=== PATIENT | female | born 1965 | race Caucasian/White ===

== ENCOUNTER 2017-09-15 20:38 | Emergency (ER) | payer SELFPAY ==
--- NOTE | 2017-09-15 21:44 | RADIOLOGY REPORT (SQ) ---
EXAM DESCRIPTION: HAND RIGHT 3 VIEWS COMPLETED DATE/TIME: 09/15/2017 9:28 pm REASON FOR STUDY: injury COMPARISON: None. EXAM PARAMETERS: NUMBER OF VIEWS: Three views. TECHNIQUE: AP, lateral and oblique radiographic images acquired of the right hand. LIMITATIONS: None. FINDINGS: MINERALIZATION: Normal. BONES: No acute fracture or dislocation. No worrisome bone lesions. JOINTS: No effusions. SOFT TISSUES: There is a bandage around the hand. OTHER: No other significant finding. IMPRESSION: NEGATIVE STUDY OF THE RIGHT HAND. NO RADIOGRAPHIC EVIDENCE OF ACUTE INJURY. TECHNICAL DOCUMENTATION: JOB ID: [id number] [employer]- All Rights Reserved Reading location - IP/workstation name: [email or web address]
[2017-09-15] MEDS ORDERED: LIDOCAINE 1% INJ-PF (10 MG/ML) 30 ML SDV INJ ONE (22:01)
[2017-09-15] MEDS ORDERED: CEPHALEXIN 500 MG CAPSULE PO ONE (22:01)
--- NOTE | 2017-09-15 22:06 | ER Document Report ---
ED Wound - General Chief Complaint: Laceration Stated Complaint: HAND LACERATION Time Seen by Provider: 09/15/17 21:07 Mode of Arrival: Ambulatory Information source: Patient TRAVEL OUTSIDE OF THE [place] IN LAST 30 DAYS: No - HPI Patient complains to provider of: Laceration Notes: Patient is here with complaints of right hand laceration. The patient states she was sitting on a porch and 1 of the legs of the chair was sitting over the edge of the porch causing her to fall backwards and lacerated her hand on the sharp branch of the [employer]. She denies striking her head. No loss of conscious. She denies any neck, back, chest, abdominal pain. She complains of a laceration and pain to the right hand. She denies any numbness, tingling. No fevers. Tetanus is up-to-date. She denies any other rashes. She denies any other injuries. She has mild pain in the area worse with movement, better with rest. No other complaints. - Related Data Allergies/Adverse Reactions: Penicillins Allergy (Verified 09/15/17 20:43) Past Medical History - Social History Smoking Status: Never Smoker Frequency of alcohol use: None Drug Abuse: None Family History: Reviewed & Not Pertinent Patient has suicidal ideation: No Patient has homicidal ideation: No - Past Medical History Cardiac Medical History: Reports: Hx Hypertension Endocrine Medical History: Reports: Hx Diabetes Mellitus Type 2 Renal/ Medical History: Denies: Hx Peritoneal Dialysis Past Surgical History: Reports: Hx Hysterectomy Review of Systems - Review of Systems -: Yes All other systems reviewed and negative Physical Exam - Vital signs Vitals: Temp Pulse Resp BP Pulse Ox 97.8 F 63 16 164/98 H 96 09/15/17 20:50 09/15/17 20:50 09/15/17 20:50 09/15/17 20:50 09/15/17 20:50 - Notes Notes: GENERAL: alert, cooperative, nontoxic, no distress. HEAD: normocephalic, atraumatic EYES: conjunctiva pink without discharge, no external redness or swelling. EARS: no external swelling, no external redness NOSE: atraumatic, no external swelling MOUTH/THROAT: mucous membranes moist and pink NECK: soft, supple, full range of motion, no meningismus. CHEST: no distress, lungs clear and equal throughout. No wheezing, rales, rhonchi. CARDIAC: regular rate and rhythm, no murmur, normal capillary refill, normal pulses. BACK: full range of motion, no CVA tenderness. EXTREMITIES: 5 cm laceration through the thenar aspect of the right hand. Laceration goes through the muscle of this area. No obvious tendon laceration. Normal cap refill and sensation to the entire thumb. Patient has limited flexion of the thumb. Remainder of her muscle skeletal exam is unremarkable. No foreign body. NEURO: alert and oriented 3, no focal deficits, full range of motion of all extremities. PYSCH: appropriate mood, affect. Patient is cooperative. SKIN: pink, warm, dry, no rash. Course - Re-evaluation Re-evalutation: 09/15/17 22:04 Patient is nontoxic appearing with stable vitals. She is here with a laceration of the palm of her right hand. She was sitting on a porch when the chair leg went over the edge of the porch causing her to fall and lacerated the palm of her right hand on sharp branch of the [place]. The patient has a deep laceration through the palm of her hand and thenar area. This does appear to go through the muscles in this area and she has limited flexion of the thumb. She does have normal sensation and cap refill. There is no obvious foreign body or obvious tendon laceration. I called and spoke with Dr. Peña of orthopedics, he recommended copious irrigation, skin closure, splinting and having the patient follow-up with Dr. Bolaños as an outpatient. Patient's tetanus is up-to-date. She will be given Keflex in the emergency department will be discharged home on Keflex and in a thumb spica splint. 09/15/17 23:41 The patient is noted to have elevated blood pressure during today's emergency department visit. The patient was informed of this finding. The patient was instructed that this may be related to pre-hypertension and requires further evaluation with a primary care provider. The patient has no hypertensive symptoms at this time. The patient's emergency department workup and current diagnosis were explained to the patient and or family. Follow-up instructions were provided. Medications if prescribed were discussed. Instructions for when to return to the emergency department including specific worrisome symptoms were discussed with the patient and/or family. - Vital Signs Vital signs: Temp Pulse Resp BP Pulse Ox 97.8 F 63 16 164/98 H 96 09/15/17 20:50 09/15/17 20:50 09/15/17 20:50 09/15/17 20:50 09/15/17 20:50 - Diagnostic Test Radiology reviewed: Image reviewed, Reports reviewed - No acute fracture or foreign body of the right hand Procedures - Immobilization right hand Pre-Proc Neuro Vasc Exam: Normal Immobilizer type: Thumb spica Performed by: PCT Post-Proc Neuro Vasc Exam: Normal Alignment checked and good: Yes - Laceration/Wound Repair right hand Wound length (cm): 5 Wound's Depth, Shape: Into muscle, Irregular, Flap Laceration pre-procedure: Sterile PPE donned, Sterile drapes applied, Shur- Clens applied Anesthetic type: 1% Lidocaine Volume Anesthetic (mLs): 10 Wound explored: Clean, No foreign body removed Irrigated w/ Saline (mLs): 100 Wound Repaired With: Sutures Suture Size/Type: 4:0, Ethilon Number of Sutures: 10 Layer Closure?: No Post-procedure wound care: Sterile dressing applied, Splint applied Post-procedure NV exam normal: Yes Complications: No Discharge - Discharge Clinical Impression: Muscle laceration Laceration of right hand Qualifiers: Encounter type: initial encounter Foreign body presence: without foreign body Qualified Code(s): S61.411A - Laceration without foreign body of right hand, initial encounter Condition: Stable Disposition: HOME, SELF-CARE Instructions: Antibiotic Ointment Protection ([facility]), Laceration Care ([facility]), Prophylactic Antibiotic ([facility]) Additional Instructions: Take medications as prescribed. Keep wound clean and dry. Wear splint until you follow-up with orthopedics. Call tomorrow to make a follow-up appointment with Dr. Bolaños. Follow-up sooner for worsening pain, fever, numbness, tingling or for any further concerns. Your blood pressure was elevated during today's visit. Have this rechecked with your doctor. The medication you were prescribed today may cause drowsiness. Do not drive or operate heavy machinery while taking this medication. Prescriptions: Cephalexin Monohydrate [Keflex 500 mg Capsule] 500 mg PO BID 10 Days #20 capsule Hydrocodone/Acetaminophen [Vera 5-325 mg Tablet] 2 tab PO Q6H PRN #15 tab PRN Reason: Forms: Elevated Blood Pressure Referrals: KHLOE BOLAÑOS DO [ACTIVE STAFF] - Follow up as needed
[2017-09-16 03:12] VITALS: BP 155/85
== END 2017-09-16 00:35 | disposition home or self-care (01) ==
LOC: ER 20:38
PROC: 0HQFXZZ Repair Right Hand Skin, External Approach (ICD-10-PCS; principal; 2017-09-15)
DX: S61.411A Laceration without foreign body of right hand, initial encounter (principal); W07.XXXA Fall from chair, initial encounter; Y92.009 Unspecified place in unspecified non-institutional (private) residence as the place of occurrence of the external cause; Z88.0 Allergy status to penicillin; I10 Essential (primary) hypertension; E11.9 Type 2 diabetes mellitus without complications; Z90.710 Acquired absence of both cervix and uterus
CPT/HCPCS: 99283; 73130; 12002; J3490

== ENCOUNTER 2019-08-11 05:26 | Inpatient (IN) | payer SELFPAY ==
[2019-08-11] MEDS ORDERED: ONDANSETRON HCL INJ/PF 4 MG/2 ML SDV IV ONE (05:38)
--- NOTE | 2019-08-11 05:40 | ER Document Report ---
ED Medical Screen (RME) - General Chief Complaint: Seizure Stated Complaint: POSSIBLE SEIZURE/AMS Time Seen by Provider: 08/11/19 05:33 Notes: 53-year-old female with chief complaint of seizure that happened just prior to arrival, she comes by EMS, told EMS he woke up and found her jerking in the bed and temporarily unresponsive for a few minutes. Patient was sluggish and postictal initially reportedly. Patient vomited after arrival to the emergency department. She did report some nausea but she denies headache, she denies any other locations of pain, she denies any other complaints. She denies head injury, denies alcohol, denies ever having a seizure in the past. Past medical history of hypertension, hypothyroidism, and has been clear from ovarian cancer for 3 years (not currently on chemotherapy or radiation). TRAVEL OUTSIDE OF THE [place] IN LAST 30 DAYS: No - Related Data Allergies/Adverse Reactions: Penicillins Allergy (Verified 09/15/17 20:43) Past Medical History - Past Medical History Cardiac Medical History: Reports: Hx Hypertension Endocrine Medical History: Reports: Hx Diabetes Mellitus Type 2 Renal/ Medical History: Denies: Hx Peritoneal Dialysis Past Surgical History: Reports: Hx Hysterectomy Physical Exam - HEENT Mouth/Lips: Other - Small area of bleeding over the distal right area of the tongue, otherwise unremarkable - Neurological Cognition: Normal Orientation: Disoriented to events. No: Disoriented to person, Disoriented to place, Disoriented to time [place] Coma Scale Eye Opening: Spontaneous [place] Coma Scale Verbal: Oriented [place] Coma Scale Motor: Obeys Commands Jerry Coma Scale Total: 15 Speech: Normal. 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 Work-up pending including CAT scan of the head because of her vomiting and lack of history of previous seizures. I have greeted and performed a rapid initial assessment of this patient. A comprehensive ED assessment and evaluation of the patient, analysis of test results and completion of the medical decision making process will be conducted by additional ED providers.
[2019-08-11 06:20] LABS: ABSOLUTE LYMPHOCYTES (AUTO) 0.5 10^3/uL (0.5-4.7); ABSOLUTE MONOCYTES (AUTO) 0.3 10^3/uL (0.1-1.4); ABSOLUTE NEUT (AUTO) 6.8 10^3/uL (1.7-8.2); BASOPHILS % (AUTO) 0.5 % (0-2); EOSINOPHILS % (AUTO) 0.2 % (0-6); HEMATOCRIT 37.2 % (36.0-47.0); HEMOGLOBIN 12.9 g/dL (12.0-15.5); LYMPHOCYTES % (AUTO) 6.1 % (13-45); MEAN CORPUSCULAR HEMOGLOBIN 30.8 pg (27.0-33.4); MEAN CORPUSCULAR HGB CONC 34.6 g/dL (32.0-36.0); MEAN CORPUSCULAR VOLUME 89 fl (80-97); MONOCYTES % (AUTO) 3.7 % (3-13); PLATELET COUNT 317 10^3/uL (150-450); RED BLOOD COUNT 4.18 10^6/uL (3.72-5.28); RED CELL DISTRIBUTION WIDTH 13.4 % (11.5-14.0); SEGMENTED NEUTROPHILS % (AUTO) 89.5 % (42-78); TOTAL CELLS COUNTED % (AUTO) 100 %; WHITE BLOOD COUNT 7.6 10^3/uL (4.0-10.5)
[2019-08-11 06:35] LABS: ALBUMIN 4.1 g/dL (3.5-5.0); ALKALINE PHOSPHATASE 53 U/L (38-126); ANION GAP 12 (5-19); ASPARTATE AMINO TRANSFERASE 39 U/L (14-36); BILIRUBIN,TOTAL 0.3 mg/dL (0.2-1.3); BLOOD UREA NITROGEN 21 mg/dL (7-20); CALCIUM 9.2 mg/dL (8.4-10.2); CARBON DIOXIDE 21 mmol/L (22-30); CHLORIDE 101 mmol/L (98-107); GLUCOSE 292 mg/dL (75-110); POTASSIUM 4.8 mmol/L (3.6-5.0); TOTAL PROTEIN 6.8 g/dL (6.3-8.2)
[2019-08-11 06:36] LABS: ALCOHOL < 10 mg/dL (NONE DETECTED)
--- NOTE | 2019-08-11 06:57 | RADIOLOGY REPORT (SQ) ---
EXAM DESCRIPTION: XR CHEST 1 VIEW COMPLETED DATE/TME: 08/11/2019 05:37 CLINICAL HISTORY: 53 years Female, confusion, vomiting COMPARISON: None. NUMBER OF VIEWS/TECHNIQUE: 1/AP FINDINGS: Adequate lung volume, clear parenchyma, normal cardiac silhouette, and intact bony thorax. IMPRESSION: No acute cardiopulmonary findings.
--- NOTE | 2019-08-11 07:01 | RADIOLOGY REPORT (SQ) ---
EXAM DESCRIPTION: CT HEAD WITHOUT IV CONTRAST COMPLETED DATE/TME: 08/11/2019 05:37 CLINICAL HISTORY: 53 years Female, confusion, vomiting COMPARISON: None. TECHNIQUE: No contrast. Coronal and sagittal reformat. This exam was performed according to our departmental dose-optimization program, which includes automated exposure control, adjustment of the mA and/or kV according to patient size and/or use of iterative reconstruction technique. FINDINGS: Small to moderate left posterior parietal and left occipital infarct-encephalomalacia. No hemorrhage. No mass, mass effect, or midline shift. Atherosclerosis. 1.8 cm left maxillary retention cyst-mucocele. Brain and extra-axial structures appear otherwise intact. IMPRESSION: No acute findings. Multiple infarcts.
[2019-08-11 07:19] LABS: URINE AMPHETAMINES SCREEN NEGATIVE; URINE BARBITURATES SCREEN NEGATIVE; URINE BENZODIAZEPINES SCREEN NEGATIVE; URINE COCAINE SCREEN NEGATIVE; URINE MARIJUANA (THC) SCREEN NEGATIVE; URINE METHADONE SCREEN NEGATIVE; URINE PHENCYCLIDINE SCREEN NEGATIVE
[2019-08-11 07:42] LABS: APPEARANCE,URINE SLIGHTLY-CLOUDY; BILIRUBIN,URINE NEGATIVE (NEGATIVE); COLOR,URINE YELLOW; GLUCOSE, URINE >=500 mg/dL (NEGATIVE); KETONES,URINE NEGATIVE (NEGATIVE); LEUKOCYTE ESTERASE,URINE NEGATIVE (NEGATIVE); NITRITE,URINE NEGATIVE (NEGATIVE); PROTEIN,URINE 30 mg/dL (NEGATIVE); URINE SPECIFIC GRAVITY 1.022; UROBILINOGEN,URINE NEGATIVE mg/dL (<2.0)
[2019-08-11 07:57] LABS: ADD MANUAL MICROSCOPIC YES; BACTERIA,URINE 3+ /HPF; RBC,URINE RARE /HPF
[2019-08-11] MEDS ORDERED: LEVETIRACETAM 1500 MG/NACL-ISO 1,500 MG/100 ML RTUPB IV ONE (08:51)
--- NOTE | 2019-08-11 10:47 | RADIOLOGY REPORT (SQ) ---
EXAM DESCRIPTION: MRI HEAD WITHOUT COMPLETED DATE/TIME: 08/11/2019 10:33 am REASON FOR STUDY: New onset seizures, multiple old infarcts COMPARISON: CT brain dated 08/11/2019 TECHNIQUE: Multiplanar imaging includes non-contrasted T1, T2, FLAIR, and Diffusion with ADC map seq uences. Images stored on PACS. LIMITATIONS: None. FINDINGS: ANATOMY: No anomalies. Normal vascular flow voids. Pituitary fossa normal. CSF SPACES: Normal in size and contour. No hemorrhage. CEREBRUM: A few high-signal intensity lesions scattered throughout the white matter on FLAIR imaging with distribution suggesting chronic micro-vascular ischemic change. Sulci and gyri normal in size a nd contour. No evidence of hemorrhage, mass or extraaxial fluid collection. POSTERIOR FOSSA: No signal alteration. No hemorrhage. No edema, masses or mass effect. Internal kristan tory canals, cerebello-pontine angles, mastoids normal. DIFFUSION: Negative for acute or sub-acute infarction. ORBITS: No masses. Globes normal. PARANASAL SINUSES: There is a retention cyst or polyp in the left maxillary sinus. OTHER: No other significant finding. IMPRESSION: Microvascular ischemic change. No acute intracranial event. EVIDENCE OF ACUTE STROKE: NO. TECHNICAL DOCUMENTATION: JOB ID: [id number] [employer]- All Rights Reserved Reading location - IP/workstation name: [email or web address]
[2019-08-11] MEDS ORDERED: ONDANSETRON HCL INJ/PF 4 MG/2 ML SDV IV PRN (10:57)
[2019-08-11] MEDS ORDERED: ACETAMINOPHEN 325 MG TABLET PO PRN (10:57)
--- NOTE | 2019-08-11 11:30 | EKG REPORT ---
SEVERITY:- BORDERLINE ECG - SINUS RHYTHM PROBABLE LEFT ATRIAL ABNORMALITY : Confirmed by: Shahid Oakes MD 11-Aug-2019 11:29:24
[2019-08-11] MEDS ORDERED: LORAZEPAM INJ 2 MG/1 ML VIAL IV PRN (11:40)
[2019-08-11] MEDS ORDERED: DEXTROSE 50%-WATER 25 GM/50 ML DISP.SYRIN IV PRN ×2 (11:44)
[2019-08-11] MEDS ORDERED: DEXTROSE 40% GEL 15 GM TUBE PO PRN ×2 (11:44)
[2019-08-11] MEDS ORDERED: GLUCAGON,HUMAN RECOMB 1 MG INJ IM PRN (11:44)
--- NOTE | 2019-08-11 12:05 | PDOC H&P ---
History of Present Illness Admission Date/PCP: 08/11/19 11:03 Patient complains of: Seizure History of Present Illness: ARNOLDO CREWS is a 53 year old female with a history of diabetes mellitus type 2, hypertension, hypothyroidism, ovarian cancer status post BRIDGETTE/BSO in remission, who presents to the hospital after an episode of suspected seizure. It was reported that patient was noted by her last night to be blankly staring and chewing with some gurgling sounds they went back to normal. This morning around 5 AM, patient was noted to be having convulsions. Her called the ambulance and on the arrival of EMS, EMS reports that patient a ppeared altered and postictal and was gradually became combative and blood sugar was in the 200s on arrival of EMS. 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 Patient just remembers seeing EMS and wondering why she was being transported to the hospital. At this moment, patient feels back to her normal self denies any pains anywhere besides her tongue. Denies any history of seizures or strokes. Denies any focal deficits. Past Medical History Cardiac Medical History: Reports: Hypertension Endocrine Medical History: Reports: Diabetes Mellitus Type 2 Past Surgical History Past Surgical History: Reports: Hysterectomy Social History Lives with: Family Smoking Status: Never Smoker Frequency of Alcohol Use: None Hx Recreational Drug Use: No - Advance Directive Resuscitation Status: Full Code Family History Family History: Hypertension, Thyroid Disfunction Parental Family History Reviewed: Yes Children Family History Reviewed: NA Sibling(s) Family History Reviewed.: Yes Medication/Allergy Home Medications: Carvedilol 25 mg PO BID 08/11/19 Cholecalciferol (Vitamin D3) [Vitamin D3] 10 mcg PO DAILY 08/11/19 Fenofibrate 160 mg PO DAILY 08/11/19 Glipizide [Glucotrol] 5 mg PO DAILY 08/11/19 Levothyroxine Sodium 100 mcg PO DAILY 08/11/19 Lisinopril [Prinivil 10 mg Tablet] 10 mg PO DAILY 08/11/19 Pyridoxine HCl (Vitamin B6) [Vitamin B-6] 100 mg PO BID 08/11/19 Sitagliptin Phos/Metformin HCl [Janumet Xr 50-1,000 mg Tablet] 1 each PO BID 08/11/19 Allergies/Adverse Reactions: Penicillins Allergy (Verified 08/11/19 05:41) Review of Systems Constitutional: ABSENT: chills, fever(s) Eyes: ABSENT: visual disturbances Ears: ABSENT: hearing changes Nose, Mouth, and Throat: ABSENT: headache(s) Cardiovascular: ABSENT: chest pain Respiratory: ABSENT: cough, dyspnea Gastrointestinal: ABSENT: abdominal pain, nausea, vomiting Genitourinary: ABSENT: dysuria Musculoskeletal: ABSENT: muscle weakness Neurological: ABSENT: confusion, dizziness, focal weakness, numbness, paresthesias, vertigo Endocrine: ABSENT: polyuria Allergic/Immunologic: PRESENT: other - denies rhinorrhea Physical Exam Vital Signs: Temp Pulse Resp BP Pulse Ox 97.7 F 88 15 121/78 100 08/11/19 11:01 08/11/19 11:26 08/11/19 11:26 08/11/19 11:26 08/11/19 11:26 Intake & Output 08/10/19 08/11/19 08/12/19 06:59 06:59 06:59 Intake Total 100 Balance 100 Weight 85.8 kg General appearance: PRESENT: no acute distress, cooperative Eye exam: PRESENT: EOMI, PERRLA Mouth exam: PRESENT: laceration - On tongue Neck exam: ABSENT: JVD Respiratory exam: PRESENT: clear to auscultation noreen, unlabored. ABSENT: tachypnea, wheezes Cardiovascular exam: PRESENT: RRR, +S1, +S2. ABSENT: tachycardia GI/Abdominal exam: PRESENT: soft. ABSENT: rebound, rigid, tenderness Extremities exam: ABSENT: calf tenderness, pedal edema Neurological exam: PRESENT: alert, awake, oriented to person, oriented to place, oriented to time, oriented to situation, CN II-XII grossly intact, normal gait, other. ABSENT: ataxia, motor sensory deficit, aphasic Psychiatric exam: ABSENT: agitated, anxious Focused psych exam: ABSENT: pressured speech Skin exam: ABSENT: jaundice Results Laboratory Results: 08/11/19 05:51 08/11/19 05:51 08/11/19 08/11/19 08/11/19 05:51 05:51 06:40 WBC 7.6 RBC 4.18 Hgb 12.9 Hct 37.2 MCV 89 MCH 30.8 MCHC 34.6 RDW 13.4 Plt Count 317 Seg Neutrophils % 89.5 H Sodium 133.8 L Potassium 4.8 Chloride 101 Carbon Dioxide 21 L Anion Gap 12 BUN 21 H Creatinine 1.08 Est GFR ( Amer) > 60 Glucose 292 H Calcium 9.2 Magnesium 1.7 Total Bilirubin 0.3 AST 39 H Alkaline Phosphatase 53 Total Protein 6.8 Albumin 4.1 Urine Color YELLOW Urine Appearance SLIGHTLY-CLOUDY Urine pH 6.0 Ur Specific [place] 1.022 Urine Protein 30 H Urine Glucose (UA) >=500 H Urine Ketones NEGATIVE Urine Blood NEGATIVE Urine Nitrite NEGATIVE Ur Leukocyte Esterase NEGATIVE Ur Squamous Epith Cells FEW 08/11/19 08/11/19 09:05 09:05 Creatine Kinase 205 H Troponin I < 0.012 Impressions: Chest X-Ray 08/11/19 05:37 IMPRESSION: No acute cardiopulmonary findings. Head CT 08/11/19 05:37 IMPRESSION: No acute findings. Multiple infarcts. Head MRI 08/11/19 09:24 IMPRESSION: Microvascular ischemic change. No acute intracranial event. EVIDENCE OF ACUTE STROKE: NO. Assessment and Plan - Diagnosis (1) Seizure Is this a current diagnosis for this admission?: Yes Plan: Acute unprovoked first-time seizure. Reported to be generalized tonic-clonic. MRI of the brain negative for stroke or other acute findings. Electrolytes within normal limits. No current evidence of infection. Vital signs are within normal limits as well. Urine drug screen negative. Denies history of alcoholism alcohol withdrawal. Medications reviewed Received a loading dose of Keppra in the ER. Given first-time unprovoked seizure without any remnant neurological deficit, I will hold off on placing on AED prophylaxis at this point. We will monitor overnight in IMCU. Check EEG (2) DM2 (diabetes mellitus, type 2) Is this a current diagnosis for this admission?: Yes Plan: Continue glipizide. Sliding scale insulin. Accu-Cheks. Diabetic diet. (3) Obesity (BMI 30.0-34.9) Is this a current diagnosis for this admission?: Yes (4) Hypertension Qualifiers: Hypertension type: essential hypertension Qualified Code(s): I10 - Essential (primary) hypertension Is this a current diagnosis for this admission?: Yes Plan: Lisinopril - Time Time Spent with patient: 35 or more minutes
--- NOTE | 2019-08-11 14:14 | ER Document Report ---
Entered by RODDY HERRON SCRIBE 08/11/19 0618 Acting as scribe for:JULIETH PA MD ED General - General Chief Complaint: Probable Seizure Stated Complaint: POSSIBLE SEIZURE/AMS Time Seen by Provider: 08/11/19 05:33 Information source: Patient, [facility] Records Notes: This 53 year old female patient presents to the emergency department today with symptoms of a possible seizure. Patient states she has not had a seizure before, does not remember what happened yesterday, and her tongue hurts. Patient states she does not have a headache but feels tired. Patient arrived to the emergency department today by EMS and they gave the patient's history. EMS stated the patient was diaphoretic, in a postictal state, and combative upon arrival. EMS stated the reported the patient had garbled speech and was making a chewing motion yesterday but returned to normal. EMS stated the patient was shaking this morning and had a altered mental status prior to their arrival. TRAVEL OUTSIDE OF THE [place] IN LAST 30 DAYS: No - Related Data Allergies/Adverse Reactions: Penicillins Allergy (Verified 08/11/19 05:41) Past Medical History - General Information source: Patient - Social History Smoking Status: Never Smoker Cigarette use (# per day): No Family History: Reviewed & Not Pertinent Patient has suicidal ideation: No Patient has homicidal ideation: No - Past Medical History Cardiac Medical History: Reports: Hx Hypertension Endocrine Medical History: Reports: Hx Diabetes Mellitus Type 2 Past Surgical History: Reports: Hx Hysterectomy Review of Systems - Review of Systems Constitutional: No symptoms reported EENT: See HPI, Other - Pain in tongue. Cardiovascular: No symptoms reported Respiratory: No symptoms reported Gastrointestinal: No symptoms reported Genitourinary: No symptoms reported Female Genitourinary: No symptoms reported Musculoskeletal: No symptoms reported Skin: No symptoms reported Hematologic/Lymphatic: No symptoms reported Neurological/Psychological: See HPI, Seizure - Possible seizure.. denies: Headaches -: Yes All other systems reviewed and negative Physical Exam - Vital signs Vitals: Temp Pulse Resp BP Pulse Ox 98 F 76 20 137/78 H 97 08/11/19 05:31 08/11/19 05:31 08/11/19 05:31 08/11/19 05:31 08/11/19 05:31 - General General appearance: Appears well, Alert - HEENT Head: Normocephalic, Atraumatic Eyes: Normal Pupils: PERRL Mouth/Lips: Other - Bite urena on the right interior tongue. Not actively bleedi ng. - Respiratory Respiratory status: No respiratory distress Chest status: Nontender Breath sounds: Normal Chest palpation: Normal - Cardiovascular Rhythm: Regular Heart sounds: Normal auscultation Murmur: No - Abdominal Inspection: Normal Distension: No distension Bowel sounds: Normal Tenderness: Nontender - Extremities General upper extremity: Normal inspection. No: Edema General lower extremity: Normal inspection. No: Edema - Neurological Neuro grossly intact: Yes Cognition: Normal Orientation: AAOx4 - Psychological Associated symptoms: Normal affect, Normal mood - Skin Skin Temperature: Warm Skin Moisture: Dry Skin Color: Normal Course - Vital Signs Vital signs: Temp Pulse Resp BP Pulse Ox 98 F 76 19 145/83 H 99 08/11/19 05:31 08/11/19 05:31 08/11/19 08:01 08/11/19 08:01 08/11/19 08:01 - Laboratory Result Diagrams: 08/11/19 05:51 08/11/19 05:51 Laboratory results interpreted by me: 08/11/19 08/11/19 08/11/19 05:50 05:51 05:51 Lymph % (Auto) 6.1 L Seg Neutrophils % 89.5 H Sodium 133.8 L Carbon Dioxide 21 L BUN 21 H Est GFR (MDRD) Non-Af 53 L Glucose 292 H POC Glucose 303 H AST 39 H ALT 47 H Creatine Kinase Urine Protein Urine Glucose (UA) Urine Ascorbic Acid 08/11/19 08/11/19 06:40 09:05 Lymph % (Auto) Seg Neutrophils % Sodium Carbon Dioxide BUN Est GFR (MDRD) Non-Af Glucose POC Glucose AST ALT Creatine Kinase 205 H Urine Protein 30 H Urine Glucose (UA) >=500 H Urine Ascorbic Acid 20 H - Diagnostic Test Radiology reviewed: Image reviewed, Reports reviewed - Small to moderate left posterior parietal and left occipital infarct-encephalomalacia. - EKG Interpretation by Me EKG shows normal: Sinus rhythm, [place], Intervals, QRS Complexes, ST-T Waves Rate: Normal - 77 Rhythm: NSR P Waves: LAE Discharge - Discharge Clinical Impression: New onset seizure, Multiple cerebral infarctions Condition: Stable Disposition: ADMITTED INPATIENT Admitting Provider: Shayan (Hospitalist) Unit Admitted: IMCU I personally performed the services described in the documentation, reviewed and edited the documentation which was dictated to the scribe in my presence, and it accurately records my words and actions.
[2019-08-11] MEDS: ENOXAPARIN SODIUM INJ 40 MG/0.4 ML DISP.SYRIN SUBCUT SCH (15:02)
--- NOTE | 2019-08-11 15:54 | NEURO WORKBENCH EEG REPORT ---
EEG Report Patient: Isabela Verdin ID: [id number] Referring Doctor: Sandie Downey DOS: 08/11/2019 Medications: levothyroxine, glipizide, Janumet XR, carvedilol, vitamin D3, vitamin B6, fenofibrate, lisinopril History This is a 53 year old right handed woman with a history of diabetes, hypertension, vulvar cancer, left eye surgery who had a new onset seizure out of sleep. This EEG was requested for seizure. EEG Interpretation This EEG was recorded in the awake, drowsy, and sleep states. The awake EEG is characterized by a well-organized background with a moderately well-developed posterior dominant rhythm of 10Hz. The remainder of the background consisted of mainly alpha with some beta and fairly prominent amount of myogenic artifact that impaired interpretation. There was occasional intermittent bilateral independent and bilateral temporal polymorphic delta activity (IPDA). Drowsiness was characterized by slowing of the background rhythms. Vertex waves and sleep spindles were seen in the midline head regions. Photic stimulation resulted in a good driving response. There were no epileptiform abnormalities. The EKG showed a regular rhythm in the 60s. EEG Classification IPDA, bitemporal and bilateral independent temporal, occasional EEG Impression This EEG is abnormal. There was occasional IPDA in the temporal regions that was increased in amount for age. This is suggestive of focal cerebral dysfunction in the temporal regions. Correlation with neuroimaging may be of interest. A single EEG without epileptiform abnormalities does not rule out a clinical diagnosis of seizure. INTERPRETING NEUROLOGIST: Gail Pierson MD, FRCPC Board Certified in Neurology, with special qualification in Child Neurology, and in Clinical Neurophysiology [facility]
[2019-08-11] MEDS: INSULIN LISPRO 100 UNIT/ML 3 ML VIAL SUBCUT SCH ×2 (16:37→22:03)
[2019-08-11] MEDS: CARVEDILOL 12.5 MG TABLET PO SCH (22:03)
[2019-08-12 05:16] LABS: ABSOLUTE LYMPHOCYTES (AUTO) 1.2 10^3/uL (0.5-4.7); ABSOLUTE MONOCYTES (AUTO) 0.6 10^3/uL (0.1-1.4); ABSOLUTE NEUT (AUTO) 4.6 10^3/uL (1.7-8.2); BASOPHILS % (AUTO) 0.7 % (0-2); EOSINOPHILS % (AUTO) 0.7 % (0-6); HEMATOCRIT 36.6 % (36.0-47.0); HEMOGLOBIN 12.7 g/dL (12.0-15.5); LYMPHOCYTES % (AUTO) 18.3 % (13-45); MEAN CORPUSCULAR HEMOGLOBIN 30.7 pg (27.0-33.4); MEAN CORPUSCULAR HGB CONC 34.5 g/dL (32.0-36.0); MEAN CORPUSCULAR VOLUME 89 fl (80-97); MONOCYTES % (AUTO) 8.7 % (3-13); PLATELET COUNT 261 10^3/uL (150-450); RED BLOOD COUNT 4.12 10^6/uL (3.72-5.28); RED CELL DISTRIBUTION WIDTH 13.3 % (11.5-14.0); SEGMENTED NEUTROPHILS % (AUTO) 71.6 % (42-78); TOTAL CELLS COUNTED % (AUTO) 100 %; WHITE BLOOD COUNT 6.4 10^3/uL (4.0-10.5)
[2019-08-12 05:37] LABS: ALBUMIN 3.8 g/dL (3.5-5.0); ALKALINE PHOSPHATASE 50 U/L (38-126); ANION GAP 8 (5-19); ASPARTATE AMINO TRANSFERASE 27 U/L (14-36); BILIRUBIN,TOTAL 0.4 mg/dL (0.2-1.3); BLOOD UREA NITROGEN 23 mg/dL (7-20); CALCIUM 9.5 mg/dL (8.4-10.2); CARBON DIOXIDE 24 mmol/L (22-30); CHLORIDE 106 mmol/L (98-107); GLUCOSE 154 mg/dL (75-110); POTASSIUM 4.1 mmol/L (3.6-5.0); TOTAL PROTEIN 6.3 g/dL (6.3-8.2)
[2019-08-12] MEDS: INSULIN LISPRO 100 UNIT/ML 3 ML VIAL SUBCUT SCH ×4 (08:05→22:13)
[2019-08-12] MEDS: FENOFIBRATE NANOCRYSTALLIZED 145 MG TABLET PO SCH (09:15)
[2019-08-12] MEDS: LEVETIRACETAM 500 MG TABLET PO SCH ×2 (09:15→22:12)
[2019-08-12] MEDS: LEVOTHYROXINE SODIUM 0.1 MG TABLET PO SCH (09:15)
[2019-08-12] MEDS: GLIPIZIDE 5 MG TABLET PO SCH (09:15)
[2019-08-12] MEDS: LISINOPRIL 10 MG TABLET PO SCH (09:15)
[2019-08-12] MEDS: CARVEDILOL 12.5 MG TABLET PO SCH ×2 (09:15→22:13)
[2019-08-12] MEDS: ENOXAPARIN SODIUM INJ 40 MG/0.4 ML DISP.SYRIN SUBCUT SCH (09:15)
--- NOTE | 2019-08-12 09:26 | PDOC PROGRESS REPORT ---
Subjective Progress Note for:: 08/12/19 Subjective:: 53 year old female with a history of diabetes mellitus type 2, hypertension, hypothyroidism, ovarian cancer status post BRIDGETTE/BSO in remission, who presents to the hospital after an episode of suspected seizure. It was reported that patient was noted by her last night to be blankly staring and chewing with some gurgling sounds they went back to normal. This morning around 5 AM, patient was noted to be having convulsions. Her called the ambulance and on the arrival of EMS, EMS reports that patient appeared altered and postictal and was gradually became combative and blood sugar was in the 200s on arrival of EMS. 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 Patient just remembers seeing EMS and wondering why she was being transported to the hospital. At this moment, patient feels back to her normal self denies any pains anywhere besides her tongue. Denies any history of seizures or strokes. Denies any focal deficits. 08/12/19 53-year-old female with history of type 2 diabetes mellitus, hypertension, hypothyroidism, ovarian cancer admitted for new onset seizure. MRI is negative for stroke. EEG is negative. To start on Keppra thousand milligrams p.o. twice daily and to continue to watch for the seizure activity today. I discussed the plan with the patient expressed the need for her to see the neurologist as an outpatient as soon as possible. She agreed to stay another night in the hospital. Reason For Visit: SEIZURE,STROKE Physical Exam Vital Signs: Temp Pulse Resp BP Pulse Ox 98.2 F 62 18 139/73 H 99 08/12/19 07:50 08/12/19 07:50 08/12/19 07:50 08/12/19 07:50 08/12/19 07:50 Intake & Output 08/11/19 08/12/19 08/13/19 06:59 06:59 06:59 Intake Total 200 Balance 200 Weight 85.8 kg 90.2 kg General appearance: PRESENT: no acute distress, obese Head exam: PRESENT: atraumatic Eye exam: PRESENT: PERRLA Mouth exam: PRESENT: moist, tongue midline Teeth exam: PRESENT: poor dentation Neck exam: ABSENT: carotid bruit, JVD, lymphadenopathy, thyromegaly Respiratory exam: PRESENT: clear to auscultation noreen. ABSENT: rales, rhonchi, wheezes Cardiovascular exam: PRESENT: RRR. ABSENT: diastolic murmur, rubs, systolic murmur Pulses: PRESENT: normal dorsalis pedis pul Vascular exam: PRESENT: normal capillary refill GI/Abdominal exam: PRESENT: normal bowel sounds, soft. ABSENT: distended, guarding, mass, organolmegaly, rebound, tenderness Rectal exam: PRESENT: deferred Neurological exam: PRESENT: alert, awake, oriented to person, oriented to place, oriented to time, oriented to situation, CN II-XII grossly intact. ABSENT: motor sensory deficit Psychiatric exam: PRESENT: appropriate affect, normal mood. ABSENT: homicidal ideation, suicidal ideation Results Laboratory Results: 08/12/19 04:22 08/12/19 04:22 08/12/19 08/12/19 08/12/19 04:22 04:22 04:22 WBC 6.4 RBC 4.12 Hgb 12.7 Hct 36.6 MCV 89 MCH 30.7 MCHC 34.5 RDW 13.3 Plt Count 261 Seg Neutrophils % 71.6 Sodium 137.9 Potassium 4.1 Chloride 106 Carbon Dioxide 24 Anion Gap 8 BUN 23 H Creatinine 1.24 Est GFR ( Amer) 54 L Glucose 154 H Calcium 9.5 Magnesium 1.9 Total Bilirubin 0.4 AST 27 Alkaline Phosphatase 50 Total Protein 6.3 Albumin 3.8 TSH 2.87 08/11/19 08/11/19 09:05 09:05 Creatine Kinase 205 H Troponin I < 0.012 Impressions: Chest X-Ray 08/11/19 05:37 IMPRESSION: No acute cardiopulmonary findings. Head CT 08/11/19 05:37 IMPRESSION: No acute findings. Multiple infarcts. Head MRI 08/11/19 09:24 IMPRESSION: Microvascular ischemic change. No acute intracranial event. EVIDENCE OF ACUTE STROKE: NO. Assessment and Plan - Diagnosis (1) Seizure Is this a current diagnosis for this admission?: Yes Plan: Acute unprovoked first-time seizure. Reported to be generalized tonic-clonic. MRI of the brain negative for stroke or other acute findings. Electrolytes within normal limits. No current evidence of infection. Vital signs are within normal limits as well. Urine drug screen negative. Denies history of alcoholism alcohol withdrawal. Medications reviewed Received a loading dose of Keppra in the ER. Given first-time unprovoked seizure without any remnant neurological deficit, I will hold off on placing on AED prophylaxis at this point. We will monitor overnight in IMCU. Check EEG 08/12/[id number]-fhqr-old female admitted with new onset seizure. No recent history of trauma. MRI is negative for stroke. Patient started on Keppra 1000 p.o. twice daily to watch for seizure activity today. EEG is abnormal. Morning alert awake oriented communicating well. (2) DM2 (diabetes mellitus, type 2) Is this a current diagnosis for this admission?: No Plan: Continue glipizide. Sliding scale insulin. Accu-Cheks. Diabetic diet. 08/12/2019-latest blood sugar is 154. Plan is to continue insulin sliding scale and glipizide. (3) Hypertension Qualifiers: Hypertension type: essential hypertension Qualified Code(s): I10 - Essnina shepardl (primary) hypertension Is this a current diagnosis for this admission?: No Plan: Lisinopril 08/12/2019-patient has history of chronic essential hypertension blood pressure today is 110/65. Plan is to continue lisinopril at this time. (4) Obesity (BMI 30.0-34.9) Is this a current diagnosis for this admission?: Yes
[2019-08-12] MEDS ORDERED: CHOLECALCIFEROL 10 MCG PO SCH (10:00)
[2019-08-12] MEDS ORDERED: (PENDING PHARMACY ID) (Fenofibrate [Fenofibrate] 160 MG) PO SCH (10:00)
[2019-08-13 06:37] LABS: ABSOLUTE EOSINOPHILS # (AUTO) 0.1 10^3/uL (0.0-0.6); ABSOLUTE LYMPHOCYTES (AUTO) 1.2 10^3/uL (0.5-4.7); ABSOLUTE MONOCYTES (AUTO) 0.5 10^3/uL (0.1-1.4); ABSOLUTE NEUT (AUTO) 2.7 10^3/uL (1.7-8.2); TOTAL CELLS COUNTED % (AUTO) 100 %; WHITE BLOOD COUNT 4.5 10^3/uL (4.0-10.5)
[2019-08-13 06:42] LABS: BASOPHILS % (AUTO) 0.9 % (0-2); EOSINOPHILS % (AUTO) 2.3 % (0-6); HEMATOCRIT 36.5 % (36.0-47.0); HEMOGLOBIN 12.7 g/dL (12.0-15.5); LYMPHOCYTES % (AUTO) 26.4 % (13-45); MEAN CORPUSCULAR HEMOGLOBIN 30.8 pg (27.0-33.4); MEAN CORPUSCULAR HGB CONC 34.9 g/dL (32.0-36.0); MEAN CORPUSCULAR VOLUME 89 fl (80-97); PLATELET COUNT 251 10^3/uL (150-450); RED BLOOD COUNT 4.13 10^6/uL (3.72-5.28); SEGMENTED NEUTROPHILS % (AUTO) 60.4 % (42-78)
[2019-08-13 06:58] LABS: ALBUMIN 3.8 g/dL (3.5-5.0); ALKALINE PHOSPHATASE 47 U/L (38-126); ANION GAP 7 (5-19); ASPARTATE AMINO TRANSFERASE 25 U/L (14-36); BILIRUBIN,TOTAL 0.3 mg/dL (0.2-1.3); BLOOD UREA NITROGEN 25 mg/dL (7-20); CALCIUM 9.6 mg/dL (8.4-10.2); CARBON DIOXIDE 25 mmol/L (22-30); CHLORIDE 107 mmol/L (98-107); GLUCOSE 158 mg/dL (75-110); POTASSIUM 4.1 mmol/L (3.6-5.0); TOTAL PROTEIN 6.4 g/dL (6.3-8.2)
[2019-08-13] MEDS: INSULIN LISPRO 100 UNIT/ML 3 ML VIAL SUBCUT SCH (08:40)
--- NOTE | 2019-08-13 09:11 | PDOC DISCHARGE SUMMARY ---
Impression - Admit/DC Date/PCP Admission Date/Primary Care Provider: 08/11/19 11:03 Discharge Date: 08/13/19 - Discharge Diagnosis (1) Seizure Is this a current diagnosis for this admission?: Yes (2) DM2 (diabetes mellitus, type 2) Is this a current diagnosis for this admission?: Yes (3) Obesity (BMI 30.0-34.9) Is this a current diagnosis for this admission?: Yes (4) Hypertension Is this a current diagnosis for this admission?: Yes - Additional Information Resuscitation Status: Full Code Discharge Diet: Diabetic Discharge Activity: Activity As Tolerated, No Driving Prescriptions: Levetiracetam [Keppra 500 mg Tablet] 750 mg PO Q12 30 Days tablet Home Medications: Carvedilol 25 mg PO BID 08/11/19 Cholecalciferol (Vitamin D3) [Vitamin D3] 10 mcg PO DAILY 08/11/19 Fenofibrate 160 mg PO DAILY 08/11/19 Glipizide [Glucotrol] 5 mg PO DAILY 08/11/19 Levothyroxine Sodium 100 mcg PO DAILY 08/11/19 Lisinopril [Prinivil 10 mg Tablet] 10 mg PO DAILY 08/11/19 Pyridoxine HCl (Vitamin B6) [Vitamin B-6] 100 mg PO BID 08/11/19 Sitagliptin Phos/Metformin HCl [Janumet Xr 50-1,000 mg Tablet] 1 each PO BID 08/11/19 Levetiracetam [Keppra 500 mg Tablet] 750 mg PO Q12 30 Days tablet 08/13/19 History of Present Illiness History of Present Illness: ARNOLDO CREWS is a 53 year old female with a history of diabetes mellitus type 2, hypertension, hypothyroidism, ovarian cancer status post BRIDGETTE/BSO in remission, who presents to the hospital after an episode of suspected seizure. It was reported that patient was noted by her last night to be blankly staring and chewing with some gurgling sounds they went back to normal. This morning around 5 AM, patient was noted to be having convulsions. Her called the ambulance and on the arrival of EMS, EMS reports that patient appeared altered and postictal and was gradually became combative and blood sugar was in the 200s on arrival of EMS. 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 Patient just remembers seeing EMS and wondering why she was being transported to the hospital. At this moment, patient feels back to her normal self denies any pains anywhere besides her tongue. Denies any history of seizures or strokes. Denies any focal deficits. Hospital Course Hospital Course: Patient was admitted for evaluation after a first-time seizure. Seizures seem to have occurred in the early mornings around 5 AM. Patient was notably postictal upon arrival of EMS. Patient has not had any recurrent episode of seizure since that episode and was back to baseline mental status at the time of my initial encounter. Electrolytes were normal and urine drug screen was negative. Head CT without contrast showed concern for infarcts but MRI of the brain showed no evidence of any strokes no lesions in the brain. Given the unprovoked nature for seizure, EEG was performed which showed no epileptiform activity but however did show bilateral polymorphic delta activity in the temporal lobes. This finding is sometimes suggestive of underlying epilepsy especially in the absence of known neurologic injury or abnormalities on neuroimaging. Given this finding in combination with patient's biology professor seizure while asleep, patient meets criteria for Epilepsy according to the ILAE definition and was thus started on Keppra. Patient has been stable and is being discharged to follow-up with her primary care provider and a neurologist for further care and evaluation. Physical Exam Vital Signs: Temp Pulse Resp BP Pulse Ox 97.3 F 57 L 15 111/71 98 08/13/19 03:05 08/13/19 07:00 08/13/19 03:05 08/13/19 03:05 08/13/19 03:05 Intake & Output 08/12/19 08/13/19 08/14/19 06:59 06:59 06:59 Intake Total 200 838 Output Total 1750 Balance 200 -912 Weight 90.2 kg 90 kg General appearance: PRESENT: no acute distress, cooperative Neck exam: ABSENT: JVD Respiratory exam: PRESENT: clear to auscultation noreen Musculoskeletal exam: PRESENT: ambulatory Neurological exam: PRESENT: alert, awake, oriented to person, oriented to place, oriented to time, oriented to situation Results Laboratory Results: WBC 4.5 10^3/uL (4.0-10.5) 08/13/19 05:32 RBC 4.13 10^6/uL (3.72-5.28) 08/13/19 05:32 Hgb 12.7 g/dL (12.0-15.5) 08/13/19 05:32 Hct 36.5 % (36.0-47.0) 08/13/19 05:32 MCV 89 fl (80-97) 08/13/19 05:32 MCH 30.8 pg (27.0-33.4) 08/13/19 05:32 MCHC 34.9 g/dL (32.0-36.0) 08/13/19 05:32 RDW 13.0 % (11.5-14.0) 08/13/19 05:32 Plt Count 251 10^3/uL (150-450) 08/13/19 05:32 Lymph % (Auto) 26.4 % (13-45) 08/13/19 05:32 [facility] % (Auto) 10.0 % (3-13) 08/13/19 05:32 Eos % (Auto) 2.3 % (0-6) 08/13/19 05:32 Baso % (Auto) 0.9 % (0-2) 08/13/19 05:32 Absolute Neuts (auto) 2.7 10^3/uL (1.7-8.2) 08/13/19 05:32 Absolute Lymphs (auto) 1.2 10^3/uL (0.5-4.7) 08/13/19 05:32 Absolute Monos (auto) 0.5 10^3/uL (0.1-1.4) 08/13/19 05:32 Absolute Eos (auto) 0.1 10^3/uL (0.0-0.6) 08/13/19 05:32 Absolute Basos (auto) 0.0 10^3/uL (0.0-0.2) 08/13/19 05:32 Seg Neutrophils % 60.4 % (42-78) 08/13/19 05:32 Sodium 139.3 mmol/L (137-145) 08/13/19 05:32 Potassium 4.1 mmol/L (3.6-5.0) 08/13/19 05:32 Chloride 107 mmol/L (98-107) 08/13/19 05:32 Carbon Dioxide 25 mmol/L (22-30) 08/13/19 05:32 Anion Gap 7 (5-19) 08/13/19 05:32 BUN 25 mg/dL (7-20) H 08/13/19 05:32 Creatinine 1.10 mg/dL (0.52-1.25) 08/13/19 05:32 Est GFR ( Amer) > 60 (>60) 08/13/19 05:32 Est GFR (MDRD) Non-Af 52 (>60) L 08/13/19 05:32 Glucose 158 mg/dL (75-110) H 08/13/19 05:32 POC Glucose 190 mg/dL (70-110) H 08/13/19 07:52 Calcium 9.6 mg/dL (8.4-10.2) 08/13/19 05:32 Magnesium 1.8 mg/dL (1.6-2.3) 08/13/19 05:32 Total Bilirubin 0.3 mg/dL (0.2-1.3) 08/13/19 05:32 Direct Bilirubin 0.0 mg/dL (0.0-0.4) 08/13/19 05:32 Neonat Total Bilirubin Not Reportable 08/13/19 05:32 Neonat Direct Bilirubin Not Reportable 08/13/19 05:32 Neonat Indirect Bili Not Reportable 08/13/19 05:32 AST 25 U/L (14-36) 08/13/19 05:32 ALT 37 U/L (<35) H 08/13/19 05:32 Alkaline Phosphatase 47 U/L (38-126) 08/13/19 05:32 Creatine Kinase 205 U/L (30-135) H 08/11/19 09:05 Troponin I < 0.012 ng/mL 08/11/19 09:05 Total Protein 6.4 g/dL (6.3-8.2) 08/13/19 05:32 Albumin 3.8 g/dL (3.5-5.0) 08/13/19 05:32 TSH 2.87 uIU/mL (0.47-4.68) 08/12/19 04:22 Urine Color YELLOW 08/11/19 06:40 Urine Appearance SLIGHTLY-CLOUDY 08/11/19 06:40 Urine pH 6.0 (5.0-9.0) 08/11/19 06:40 Ur Specific [place] 1.022 08/11/19 06:40 Urine Protein 30 mg/dL (NEGATIVE) H 08/11/19 06:40 Urine Glucose (UA) >=500 mg/dL (NEGATIVE) H 08/11/19 06:40 Urine Ketones NEGATIVE mg/dL (NEGATIVE) 08/11/19 06:40 Urine Blood NEGATIVE (NEGATIVE) 08/11/19 06:40 Urine Nitrite NEGATIVE (NEGATIVE) 08/11/19 06:40 Urine Bilirubin NEGATIVE (NEGATIVE) 08/11/19 06:40 Urine Urobilinogen NEGATIVE mg/dL (<2.0) 08/11/19 06:40 Ur Leukocyte Esterase NEGATIVE (NEGATIVE) 08/11/19 06:40 Urine RBC RARE /HPF 08/11/19 06:40 Urine WBC 1-5 /HPF 08/11/19 06:40 Ur Squamous Epith Cells FEW /HPF 08/11/19 06:40 Urine Bacteria 3+ /HPF 08/11/19 06:40 Urine Ascorbic Acid 20 (NEGATIVE) H 08/11/19 06:40 Urine Opiates Screen NEGATIVE 08/11/19 06:40 Urine Methadone Screen NEGATIVE 08/11/19 06:40 Ur Barbiturates Screen NEGATIVE 08/11/19 06:40 Ur Phencyclidine Scrn NEGATIVE 08/11/19 06:40 Ur Amphetamines Screen NEGATIVE 08/11/19 06:40 U Benzodiazepines Scrn NEGATIVE 08/11/19 06:40 Urine Cocaine Screen NEGATIVE 08/11/19 06:40 U Marijuana (THC) Screen NEGATIVE 08/11/19 06:40 Serum Alcohol < 10 mg/dL (NONE DETECTED) 08/11/19 05:51 08/11/19 09:05 Troponin I < 0.012 Impressions: Chest X-Ray 08/11/19 05:37 IMPRESSION: No acute cardiopulmonary findings. Head CT 08/11/19 05:37 IMPRESSION: No acute findings. Multiple infarcts. Head MRI 08/11/19 09:24 IMPRESSION: Microvascular ischemic change. No acute intracranial event. EVIDENCE OF ACUTE STROKE: NO. Plan Time Spent: Less than 30 Minutes Stroke Is this a Stroke Patient?: No Acute Heart Failure - Is this a Heart Failure Patient?: No
[2019-08-13 09:23] VITALS: BP 120/65
[2019-08-13] MEDS: CARVEDILOL 12.5 MG TABLET PO SCH (10:36)
[2019-08-13] MEDS: FENOFIBRATE NANOCRYSTALLIZED 145 MG TABLET PO SCH (10:36)
[2019-08-13] MEDS: LEVETIRACETAM 500 MG TABLET PO SCH (10:36)
[2019-08-13] MEDS: LISINOPRIL 10 MG TABLET PO SCH (10:36)
[2019-08-13] MEDS: LEVOTHYROXINE SODIUM 0.1 MG TABLET PO SCH (10:36)
[2019-08-13] MEDS: GLIPIZIDE 5 MG TABLET PO SCH (10:36)
[2019-08-13] MEDS: ENOXAPARIN SODIUM INJ 40 MG/0.4 ML DISP.SYRIN SUBCUT SCH (10:37)
== END 2019-08-13 11:50 | disposition home or self-care (01) | DRG 101 ==
LOC: ER 05:26 → EH 11:03 → 3W 17:40
PROVIDERS: ADMIT Internal Medicine; ATTEND Internal Medicine
DX: G40.909 Epilepsy, unspecified, not intractable, without status epilepticus (principal); E11.8 Type 2 diabetes mellitus with unspecified complications; I10 Essential (primary) hypertension; E03.9 Hypothyroidism, unspecified
CPT/HCPCS: 36415; 70450; 70551; 71045; 80053; 80307; 81001; 82550; 82962; 83735; 84443; 84484; 85025; 93005; 93010; 95819; 96374; 96375; 99285; J1650; J1815; J1953; J2405; J3490